=== PATIENT | male | born 1975 | race African-American/Black ===

== ENCOUNTER 2025-01-07 10:27 | Inpatient (IN) | payer OTHER, MEDICAID ==
[~2025-01-07] VITALS: Ht 190.5 cm; Wt 121.3 kg
--- NOTE | 2025-01-07 11:14 | ED.PDOC ---
GI ASSESSMENT HPI Comments This is a 49 year old male presenting to the ED with chief complaint of abdominal pain. Patient reports that he has been experiencing intermittent epigastric/LLQ abdominal cramping with associated nausea, vomiting, chills, and constipation for the past 3 weeks. Patient notes his pain is currently a 6/10. Patient denies any diarrhea, fever, chest pain, SOB, hematemesis, or melena. Chief Complaint: Abdominal Pain Time Seen by MD: 11:13 Primary Care Provider: NONE Reviewed Notes: Nurses Notes, Medications, Allergies Allergies: Coded Allergies: NO KNOWN ALLERGIES (Unverified , 01/29/11) Information Source: Patient Mode of Arrival: Ambulatory Timing: Weeks Duration: Intermittent Prehospital treatment: None Quality: Cramping Vomitus: Watery Stool: Impaction Severity: Moderate Recent: None Recent Hx of: None Pain Location: Epigastric, LLQ Modifying Factors: Nothing Associated sign and symptoms: Nausea, Vomiting, Constipation, Abdominal Pain Past Medical History PAST MEDICAL HISTORY: Denies Surgical History: Denies all surgeries Family History Family History: Reviewed,noncontributory to illness Social History Smoker: Non-Smoker Alcohol: Occasionally Drugs: Marijuana Lives In: Home Constitutional: reports: chills; denies: diaphoresis, fatigue, fever, malaise, sweats, weakness, others EENTM: denies: blurred vision, double vision, ear bleeding, ear discharge, ear drainage, ear pain, ear ringing, eye pain, eye redness, hearing loss, mouth dorothy n, mouth swelling, nasal discharge, nose bleeding, nose congestion, nose pain, photophobia, tearing, throat pain, throat swelling, voice changes, others Respiratory: denies: cough, hemoptysis, orthopnea, SOB at rest, shortness of breath, SOB with excertion, stridor, wheezing, others Cardiovascular: denies: chest pain, dizzy spells, diaphoresis, Dyspnea on exertion, edema, irregular heart beat, left arm pain, lightheadedness, palpitations, PND, syncope, others Gastrointestinal: reports: abdominal pain, constipated, nausea, vomiting; denies: abdomen distended, blood streaked bowels, diarrhea, dysphagia, difficult y swallowing, hematemesis, melena, poor appetite, poor fluid intake, rectal bleeding, rectal pain, others Genitourinary: denies: burning, dysuria, flank pain, frequency, hematuria, incontinence, penile discharge, penile sore, pain, testicle pain, testicle swelling, urgency, others Neurological: denies: dizziness, fainting, headache, left sided numbness, left sided weakness, numbness, paresthesia, pre-existing deficit, right sided numbness, right sided weakness, seizure, speech problems, tingling, tremors, weakness, others Musculoskeletal: denies: back pain, gout, joint pain, joint swelling, muscle pain, muscle stiffness, neck pain, others Integumetry: denies: bruises, change in color, change in hair/nails, dryness, laceration, lesions, lumps, rash, wounds, others Allergic/Immunocompromised: denies: Difficulty Healing, Frequent Infections, Hives, Itching, others Hematologic/Lymphatic: denies: anemia, blood clots, easy bleeding, easy bruising, swollen glands, others Endocrine: denies: excessive hunger, excessive sweating, excessive thirst, excessive urination, flushing, intolerance to cold, intolerance to heat, unexplained weight gain, unexplained weight loss, others Psychiatric: denies: anxiety, bipolar disorder, depression, hopeless, panic disorder, schizophrenia, sleepless, suicidal, others All Other Systems: Reviewed and Negative Physical Exam General Appearance: Moderate Distress HEENT: Normal ENT Inspection, Pharynx Normal, TMs Normal Neck: Full Range of Motion, Non-Tender, Normal, Normal Inspection Respiratory: Chest Non-Tender, Lungs Clear, No Accessory Muscle Use, No Respiratory Distress, Normal Breath Sounds Cardiovascular: No Edema, No JVD, No Murmur, No Gallop, Normal Peripheral Pulses, Regular Rate/Rhythm Breast Exam: Deferred Gastrointestinal: Diffuse, No Organomegaly, No Pulsatile Mass, Normal Bowel Sounds, Soft, Tenderness Genitalia: Deferred Pelvic: Deferred Rectal: Deferred Extremities: No calf tenderness, Normal capillary refill, Normal inspection, Normal range of motion, Non-tender, No pedal edema Musculoskeletal : Apperance: Normal Neurologic: Alert, account management assistant II-XII nml as Tested, Motor Weakness, Normal Affect, Normal Mood, No Sensory Deficits Cerebellar Function: Normal Reflexes: Normal Skin: Dry, Normal Color, Warm Lymphatic: No Adenopathy EKG EKG : Pulse Rate (adult): 66 [place]: Normal Cardiac Rhythm: NSR Block: None Hypertrophy: None ST: Normal Was a procedure done? Was a procedure done?: No GI differential Dx Differential Diagnosis: Appendicitis, Inflammatory BD, Ischemic Bowel, Pancreatitis, UTI, Urolithiasis, Electrolyte Imbalance, Food Poisoning X-Ray, Labs, Meds, VS Vital Signs Date Time Temp Pulse Resp B/P (MAP) Pulse Ox O2 Delivery O2 Flow Rate FiO2 01/07/25 12:58 98.3 95 19 124/80 (95) 98 98.3 01/07/25 11:29 66 01/07/25 10:37 66 01/07/25 10:30 98.1 76 18 134/89 97 98.1 Lab Test 01/07/25 11:55 Range/Units White Blood Count 9.3 4.4-10.8 10^3/uL Red Blood Count 4.78 4.5-5.90 10^6/uL Hemoglobin 15.1 13.5-17.5 g/dL Hematocrit 43.8 41.0-53.0 % Mean Corpuscular Volume 91.6 80.0-100.0 fL Mean Corpuscular Hemoglobin 31.5 28.0-32.0 pg Mean Corpuscular Hemoglobin Concent 34.4 32.0-36.0 g/dL Red Cell Distribution Width 13.1 11.8-14.3 % Platelet Count 288 140-450 10^3/uL Mean Platelet Volume 7.3 6.9-10.8 fL Neutrophils (%) (Auto) 63.1 37.0-80.0 % Lymphocytes (%) (Auto) 27.8 10.0-50.0 % Monocytes (%) (Auto) 8.0 0.0-12.0 % Eosinophils (%) (Auto) 0.4 0.0-7.0 % Basophils (%) (Auto) 0.7 0.0-2.0 % Neutrophils # (Auto) 5.8 1.6-8.6 10 ^3/uL Lymphocytes # (Auto) 2.6 0.4-5.4 10 ^3/uL Monocytes # (Auto) 0.7 0-1.3 10 ^3/uL Eosinophils # (Auto) 0 0-0.8 10 ^3/uL Basophils # (Auto) 0.1 0-0.2 10 ^3/uL Nucleated Red Blood Cells 0.1 % Sodium Level 140 136-145 mmol/L Potassium Level 4.4 3.5-5.1 mmol/L Chloride Level 108 H 98-107 mmol/L Carbon Dioxide Level 30 20-31 mmol/L Anion Gap 2 L 5-15 Blood Urea Nitrogen 11 9-23 mg/dL Creatinine 1.18 0.700-1.30 mg/dL Glomerular Filtration Rate Calc 75 >90 mL/min BUN/Creatinine Ratio 9.3 L 10.0-20.0 Serum Glucose 88 74-106 mg/dL Calcium Level 9.0 8.7-10.4 mg/dL Total Bilirubin 0.9 0.2-1.0 mg/dL Aspartate Amino Transferase (AST) 18 13-40 U/L Alanine Aminotransferase (ALT) 27 7-40 U/L Alkaline Phosphatase 76 46-116 U/L Total Protein 7.5 5.7-8.2 g/dL Albumin 4.2 3.2-4.8 g/dL Lipase 72 H 12-53 U/L CT Abd/Pel indicates: No acute intraabdominal abnormality. The patient's CBC is within normal limits The chemistry panel is within normal limits The patient's lipase is elevated at 72 indicating acute pancreatitis IV Hep-Lock was established The patient is being morphine 4 mg for the pain The patient was given Protonix 40 mg IV push The patient will be admitted at this time Images Reviewed?: Images reviewed and evaluated by me Time of 1ST Reevaluation: 16:04 Reevaluation 1ST: Unchanged Patient Education/Counseling: Diagnosis, Treatment, Prognosis Family Education/Counseling: No Family Present SEPSIS Sepsis Screen Date sepsis recognized/suspect: Jan 07, 2025 Time Sepsis recognized/suspect: 1032 Recent Procedure: No On Antibiotic Therapy: No Respiratory Rate >20: No Heart Rate >90: No Temp<36 C (96.8 F) or >38.3 C: No SBP <90 or MAP <65 mmHG: No New Acute Mental Status Change: No Is the patient on CPAP, BIPAP,: No Physician Orders Urinalysis (01/07/25 11:00) Ct Ab Pel Wo Con-No Oral Or Iv (01/07/25 11:00) Vital Signs Date Time Temp Pulse Resp B/P (MAP) Pulse Ox O2 Delivery O2 Flow Rate FiO2 01/07/25 12:58 98.3 95 19 124/80 (95) 98 98.3 01/07/25 11:29 66 01/07/25 10:37 66 01/07/25 10:30 98.1 76 18 134/89 97 98.1 Laboratory Tests Test 01/07/25 11:55 White Blood Count 9.3 10^3/uL (4.4-10.8) Departure 1 Departure Time of Disposition: 16:05 Impression: Primary Impression: Intractable abdominal pain Additional Impression: Acute pancreatitis Qualified Codes: K85.90 - Acute pancreatitis without necrosis or infection, unspecified Disposition: ADMITTED INPATIENT Admit to: Med Surg Condition: Fair Critical Care Note Critical Care Time?: No Stability Stability form required: Yes Unstable for transfer: ED Physician Assesment (Clinical assesment) Heart Score Heart Score: Heart Score Response (Comments) Value History N/A 0 EKG N/A 0 Age N/A 0 Risk Factors N/A 0 Troponin N/A 0 Total 0 I personally scribed for SALLIE YOUSIF MD ([email or web address]) on 01/07/25 at 11:14. Electronically submitted by Lino Amaya ([email or web address]). I personally scribed for SALLIE YOUSIF MD ([email or web address]) on 01/07/25 at 11:29. Electronically submitted by Lino Amaya ([email or web address]). I personally scribed for SALLIE YOUSIF MD ([email or web address]) on 01/07/25 at 11:44. Electronically submitted by Lino Amaya ([email or web address]). SALLIE YOUSIF MD Jan 07, 2025 11:14
--- NOTE | 2025-01-07 11:41 | DVH ---
CT CT AB PEL WO CON-NO ORAL OR IV INDICATION: pain EXAM DATE: 01/07/2025 10:59 AM COMPARISON: None RADIATION DOSE: CTDIvol: 23.2 mGy, DLP: 1428.03 mGy*cm PROCEDURE: Helical CT images were obtained of the abdomen and pelvis without IV contrast Sagittal and coronal reconstructions are provided. ORAL CONTRAST: None. ADDITIONAL IMAGES / REFORMATS: None All C T scans at this medical facility are performed using dose modulation techniques as appropriate to a p erformed exam including the following: Automated exposure control was utilized; adjustment of the MA and/or KV according to patient size; and use of iterative reconstruction technique. FINDINGS: LUNG BASE: Normal. LIVER: Normal. GALLBLADDER AND BILIARY TREE: No calcified gallstones. Normal caliber wall. No intra- or extrahepatic biliary ductal dilation. PANCREAS: Normal. SPLEEN: Normal. BOWEL: Mild colonic diverticulosis. Normal appendix. ADRENALS: Bilateral adrenal gland thickening, nonspecific. KIDNEYS AND URETER: Normal. BLADDER: Normal. REPRODUCTIVE ORGANS: Normal. LYMPH NODES:No lymphadenopathy. PERITONEUM: No ascites or free air. No other fluid collection. VESSELS: Scattered atherosclerotic calcifications are noted. RETROPERITONEUM: Normal. ABDOMINAL WALL: Normal. BONES: Scattered osseous degenerative changes are noted. IMPRESSION: No acute intraabdominal abnormality.
[2025-01-07 12:20] LABS: Hematocrit 43.8 % (41.0-53.0); Hemoglobin 15.1 g/dL (13.5-17.5); Mean Corpuscular Hemoglobin 31.5 pg (28.0-32.0); Mean Corpuscular Volume 91.6 fL (80.0-100.0); Nucleated Red Blood Cells % 0.1 %
[2025-01-07 12:39] LABS: Alanine Aminotransferase 27 U/L (7-40); Albumin 4.2 g/dL (3.2-4.8); Alkaline Phosphatase 76 U/L (46-116); Anion Gap 2 (5-15); BUN/Creatinine Ratio 9.3 (10.0-20.0); Bilirubin, Total 0.9 mg/dL (0.2-1.0); Blood Urea Nitrogen 11 mg/dL (9-23); Calcium 9.0 mg/dL (8.7-10.4); Carbon Dioxide 30 mmol/L (20-31); Chloride 108 mmol/L (98-107); Glucose 88 mg/dL (74-106); Potassium 4.4 mmol/L (3.5-5.1); Sodium 140 mmol/L (136-145); Total Protein 7.5 g/dL (5.7-8.2)
[2025-01-07 12:51] LABS: Lipase 72 U/L (12-53)
--- NOTE | 2025-01-07 13:32 | ECG ---
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
[2025-01-07] MEDS ORDERED: DOCUSATE SOD 100 MG CAP PO PRN (15:45)
[2025-01-07] MEDS ORDERED: MORPHINE SULFATE INJ 2 MG/ml SYRG IV PRN (15:45)
[2025-01-07] MEDS ORDERED: NITROGLYCERIN 0.4 MG SL TAB SL PRN (15:45)
[2025-01-07] MEDS ORDERED: ONDANSETRON HCL 4 MG/2 ML VIAL IV PRN (15:45)
--- NOTE | 2025-01-07 15:53 | DVHHP2 ---
History of Present Illness Reason for Visit: Abdominal pain History of Present Illness 49-year-old male past medical history denies denies any surgical history chief complaint patient has been dealing with epigastric pain for the last three weeks he states that it is like a stabbing pain/cramping pain he has been off and on is worse with eating and when he is having a bowel movement he does state he has a history of constipation he denies any recent colonoscopy or or EGD in the past he denies any tearing sensation in the abdomen no chest pain no shortness with the breath he does smoke weed by history with the drinks occasionally he states when evaluating patient's labs and imaging from ED CBC was unremarkable CMP unremarkable CT scan of the abdomen pelvis unremarkable lipase was found to be seven eighth two. With these findings we will admit for IV hydration and pain management Past Medical History See HPI above Past Surgical History See HPI above Family History Reviewed, non-contributory to the management of this case. Past Social History Does smoke weed drinks occasionally denies drug use Review of Systems Constitutional: No: Fever, Chills, Sweats, Weakness, Malaise, Other Eyes: No: Pain, Vision change, Conjunctivae inflammation, Eyelid inflammation, Other, Redness ENT: No: Ear pain, Ear discharge, Nose pain, Nose discharge, Nose congestion, Mouth pain, Mouth swelling, Throat pain, Throat swelling, Other Respiratory: No: Cough, Dry, Shortness of breath, SOB with excertion, Wheezing, Hemoptysis, Pleuritic Pain, Sputum, Wheezing, Other Cardiovascular: No: Chest Pain, Palpitations, Orthopnea, Paroxysmal Noc. Dyspnea, Edema, Lt Headedness, Other Gastrointestinal: Abdominal Pain; No: Nausea, Vomiting, Diarrhea, Constipation, Melena, Hematochezia, Other Genitourinary: No Dysuria, No Frequency, No Incontinence, No Hematuria, No Re tention, No Other Musculoskeletal: No: other, neck pain, shoulder pain, arm pain, back pain, hand pain, leg pain, foot pain Skin: No: Rash, Lesions, Jaundice, Bruising, Other Neurological: No: Weakness, Numbness, Incoordination, Change in speech, Confusion, Seizures, Other Allergies: Coded Allergies: NO KNOWN ALLERGIES (Unverified , 01/29/11) Exam Vital Signs Vital Signs Date Time Temp Pulse Resp B/P (MAP) Pulse Ox O2 Delivery O2 Flow Rate FiO2 01/07/25 12:58 98.3 95 19 124/80 (95) 98 98.3 General Appearance: Alert, Oriented X3, Cooperative, No acute distress HEENT: Atraumatic, PERRLA, EOMI, Mucous membr. moist/pink Respiratory: Clear to auscultation, Normal air movement Cardiovascular: Regular rate, Normal S1, Normal S2, No murmurs Abdominal: Normal bowel sounds, Soft, No tenderness, No hepatospenomegaly, No masses Extremities: No clubbing, No cyanosis, No edema, Normal pulses, No tenderness/swelling Skin: No rashes, No breakdown, No significant lesion Neuro: Normal gait, Normal speech, Strength at 5/5 X4 ext, Normal tone, Sensation intact Psych/Mental Status: Mental status NL, Mood NL Labs/Xrays CT scan abdomen pelvis unremarkable I reviewed labs, imaging CT scan abdomen pelvis, EKG and all diagnostic studies on this patient from ED records and the medical chart Labs Test 01/07/25 11:55 Range/Units White Blood Count 9.3 4.4-10.8 10^3/uL Red Blood Count 4.78 4.5-5.90 10^6/uL Hemoglobin 15.1 13.5-17.5 g/dL Hematocrit 43.8 41.0-53.0 % Mean Corpuscular Volume 91.6 80.0-100.0 fL Mean Corpuscular Hemoglobin 31.5 28.0-32.0 pg Mean Corpuscular Hemoglobin Concent 34.4 32.0-36.0 g/dL Red Cell Distribution Width 13.1 11.8-14.3 % Platelet Count 288 140-450 10^3/uL Mean Platelet Volume 7.3 6.9-10.8 fL Neutrophils (%) (Auto) 63.1 37.0-80.0 % Lymphocytes (%) (Auto) 27.8 10.0-50.0 % Monocytes (%) (Auto) 8.0 0.0-12.0 % Eosinophils (%) (Auto) 0.4 0.0-7.0 % Basophils (%) (Auto) 0.7 0.0-2.0 % Neutrophils # (Auto) 5.8 1.6-8.6 10 ^3/uL Lymphocytes # (Auto) 2.6 0.4-5.4 10 ^3/uL Monocytes # (Auto) 0.7 0-1.3 10 ^3/uL Eosinophils # (Auto) 0 0-0.8 10 ^3/uL Basophils # (Auto) 0.1 0-0.2 10 ^3/uL Nucleated Red Blood Cells 0.1 % Sodium Level 140 136-145 mmol/L Potassium Level 4.4 3.5-5.1 mmol/L Chloride Level 108 H 98-107 mmol/L Carbon Dioxide Level 30 20-31 mmol/L Anion Gap 2 L 5-15 Blood Urea Nitrogen 11 9-23 mg/dL Creatinine 1.18 0.700-1.30 mg/dL Glomerular Filtration Rate Calc 75 >90 mL/min BUN/Creatinine Ratio 9.3 L 10.0-20.0 Serum Glucose 88 74-106 mg/dL Calcium Level 9.0 8.7-10.4 mg/dL Total Bilirubin 0.9 0.2-1.0 mg/dL Aspartate Amino Transferase (AST) 18 13-40 U/L Alanine Aminotransferase (ALT) 27 7-40 U/L Alkaline Phosphatase 76 46-116 U/L Total Protein 7.5 5.7-8.2 g/dL Albumin 4.2 3.2-4.8 g/dL Lipase 72 H 12-53 U/L SEPSIS Sepsis Screen Date sepsis recognized/suspect: Jan 07, 2025 Time Sepsis recognized/suspect: 1032 Recent Procedure: No On Antibiotic Therapy: No Respiratory Rate >20: No Heart Rate >90: No Temp<36 C (96.8 F) or >38.3 C: No SBP <90 or MAP <65 mmHG: No New Acute Mental Status Change: No Is the patient on CPAP, BIPAP,: No Physician Orders Urinalysis (01/07/25 11:00) Ct Ab Pel Wo Con-No Oral Or Iv (01/07/25 11:00) Sucralfate Susp (Carafate Susp) (01/07/25 22:00) Pantoprazole (Protonix) (01/07/25 15:45) Pantoprazole (Protonix) (01/08/25 10:00) Admit (01/07/25 15:45) Allergies (01/07/25 15:45) Code Status (01/07/25 15:45) Full Liq Diet (01/07/25 Dinner) 0.9% Ns 1000 Ml (01/07/25 15:45) Temazepam (Restoril) (01/07/25 15:45) Ondansetron Hcl (Zofran) (01/07/25 15:45) Docusate Sodium Capsule (Colace Capsule) (01/07/25 15:45) Complete Blood Count (01/08/25 04:00) Comprehensive Metabolic Panel (01/08/25 04:00) Condition: Stable (01/07/25 15:45) BRP (01/07/25 15:45) Morphine Sulfate Injection (01/07/25 15:45) Sequential Compression Device (01/07/25 ) Nitroglycerin Sublingual (Ntrostat Subli (01/07/25 15:45) Stat Ekg For Chest Pain (01/07/25 15:45) Notify Md Of Changes From Base (01/07/25 15:45) Sheet Metal Supervisor For 24 Hours (01/07/25 15:45) Emergency Dysrhythmia Protocol (01/07/25 15:45) Rhythm Strips Once Every Shift (01/07/25 15:45) Oxygen By Nasal Cannula (01/07/25 15:45) Lipase (01/07/25 15:45) Vital Signs Date Time Temp Pulse Resp B/P (MAP) Pulse Ox O2 Delivery O2 Flow Rate FiO2 01/07/25 12:58 98.3 95 19 124/80 (95) 98 98.3 01/07/25 11:29 66 01/07/25 10:37 66 01/07/25 10:30 98.1 76 18 134/89 97 98.1 Laboratory Tests Test 01/07/25 11:55 White Blood Count 9.3 10^3/uL (4.4-10.8) Assessment/Plan Assessment/Plan Acute intractable abdominal pain CT scan unremarkable Full liquid diet for now Order Carafate and Protonix Order IV fluids Order morphine as needed for pain Follow up lipase in the a.m. Acute pancreatitis Elevated lipase Full liquid diet for now Order morphine as needed for pain fen/PPX Full liquid diet IV fluids Protonix No DVT prophylaxis since patient is ambulatory Plan admit to medicine Plan discussed with: Patient My Orders Orders - BHARATHI PEREZ DNP Procedure Category Date Status Time Sucralfate Susp PHA 01/07/25 Verified (Carafate Susp) 22:00 Pantoprazole PHA 01/07/25 Verified (Protonix) 15:45 Pantoprazole [facility] 01/08/25 Verified (Protonix) 10:00 Admit ADMIT 01/07/25 Verified 15:45 Allergies [facility] 01/07/25 Verified 15:45 Code Status CODE 01/07/25 Verified 15:45 Full Liq Diet DIET 01/07/25 Verified Dinner 0.9% Ns 1000 Ml PHA 01/07/25 Verified 15:45 Temazepam (Restoril) [facility] 01/07/25 Verified 15:45 Ondansetron Hcl [facility] 01/07/25 Verified (Zofran) 15:45 Docusate Sodium [facility] 01/07/25 Verified Capsule (Colace 15:45 Complete Blood Count LAB 01/08/25 Verified 04:00 Comprehensive LAB 01/08/25 Verified Metabolic Panel 04:00 Condition: Stable [facility] 01/07/25 Verified 15:45 BRP [facility] 01/07/25 Verified 15:45 Morphine Sulfate [facility] 01/07/25 Verified Injection 15:45 Sequential [facility] 01/07/25 Verified Compression Device Nitroglycerin [facility] 01/07/25 Verified Sublingual (Ntrostat 15:45 Stat Ekg For Chest [facility] 01/07/25 Verified Pain 15:45 Notify Md Of Changes [facility] 01/07/25 Verified From Base 15:45 Sheet Metal Supervisor For [facility] 01/07/25 Verified 24 Hours 15:45 Emergency Dysrhythmia [facility] 01/07/25 Verified Protocol 15:45 Rhythm Strips Once [facility] 01/07/25 Verified Every Shift 15:45 Oxygen By Nasal RT 01/07/25 Verified Cannula 15:45 Lipase LAB 01/07/25 Verified 15:45 Date of Service: Jan 07, 2025 Billing Provider: BHARATHI PEREZ DNP Common Visit Codes: [id number] INP/OBS CARE (HIGH) BHARATHI PEREZ DNP Jan 07, 2025 15:53
[2025-01-07] MEDS: PANTOPRAZOLE 40 MG/10 ML VIAL INJ IV ONE (17:43)
[2025-01-07 17:53] VITALS: PULSE 50; RESP 18; O2SAT 95
[2025-01-07 18:12] LABS: Urine Protein, UAD Negative (Negative)
[2025-01-07] MEDS: DICYCLOMINE HCL 10 MG CAP PO SCH (18:20)
[2025-01-07] MEDS: SODIUM CHLORIDE 0.9% 1,000 ML IV SCH (18:30)
[2025-01-07] MEDS ORDERED: TEMAZEPAM 15 MG CAP PO PRN (22:00)
[2025-01-07] MEDS: SUCRALFATE 1 GM/10 ML ORAL SUSP PO SCH (22:56)
[2025-01-08] VITALS (9 sets, daily range): BP systolic 116–156; BP diastolic 81–101; PULSE 58–86; RESP 16–18; TEMP 97.1–98.5; O2SAT 96–99
[2025-01-08 06:19] LABS: Hematocrit 41.2 % (41.0-53.0); Hemoglobin 14.1 g/dL (13.5-17.5); Mean Corpuscular Hemoglobin 31.1 pg (28.0-32.0); Mean Corpuscular Volume 90.5 fL (80.0-100.0); Nucleated Red Blood Cells % 0.1 %
[2025-01-08 06:44] LABS: Alanine Aminotransferase 22 U/L (7-40); Albumin 3.6 g/dL (3.2-4.8); Alkaline Phosphatase 69 U/L (46-116); Anion Gap 6 (5-15); BUN/Creatinine Ratio 9.2 (10.0-20.0); Blood Urea Nitrogen 11 mg/dL (9-23); Carbon Dioxide 26 mmol/L (20-31); Glucose 82 mg/dL (74-106); Potassium 4.0 mmol/L (3.5-5.1); Sodium 141 mmol/L (136-145); Total Protein 6.7 g/dL (5.7-8.2)
[2025-01-08 06:45] LABS: Bilirubin, Total 1.0 mg/dL (0.2-1.0); Calcium 8.7 mg/dL (8.7-10.4); Chloride 109 mmol/L (98-107)
[2025-01-08] MEDS: PANTOPRAZOLE 40 MG/10 ML VIAL INJ IV SCH (09:23)
--- NOTE | 2025-01-08 11:37 | DVHPN2 ---
Reviewed: Care Plan, H&P, Labs, Medications, Previous Orders, Radiology Changes from previous H/P or p: No Changes Eyes: No Pain, No Vision change, No Conjunctivae inflammation, No Eyelid inflammation, No Other, No Redness ENT: No Ear pain, No Ear discharge, No Nose pain, No Nose discharge, No Nose congestion, No Mouth pain, No Mouth swelling, No Throat pain, No Throat swelling, No Other Cardiovascular: No Chest Pain, No Palpitations, No Orthopnea, No Paroxysmal Noc. Dyspnea, No Edema, No Lt Headedness, No Other Respiratory: No Cough, No Dry, No Shortness of breath, No SOB with excertion, No Wheezing, No Hemoptysis, No Pleuritic Pain, No Sputum, No Other Gastrointestinal: No Nausea, No Vomiting; Abdominal Pain; No Diarrhea, No Constipation, No Melena, No Hematochezia, No Other Genitourinary: No Dysuria, No Frequency, No Incontinence, No Hematuria, No Retention, No Other Musculoskeletal: No other, No neck pain, No shoulder pain, No arm pain, No back pain, No hand pain, No leg pain, No foot pain Skin: No Rash, No Lesions, No Jaundice, No Bruising, No Other Objective Vitals Vital Signs Date Time Temp Pulse Resp B/P (MAP) Pulse Ox O2 Delivery O2 Flow Rate FiO2 01/08/25 09:00 98.4 86 18 116/81 (93) 99 98.4 01/08/25 08:00 Room Air* 0 21 Intake/Output Intake and Output 01/08/25 07:00 Intake Total 420 ml Balance 420 ml Intake Oral 420 ml # Voids 3 Medications Current Medications Medications Dose Ordered Sig/Natalie Route Start Time Stop Time Status Last Admin Dose Admin Sucralfate 1 gm TID@0600,1130,2200 PO 01/07/25 22:00 01/08/25 05:15 1 GM Pantoprazole Sodium 40 mg DAILY IV 01/08/25 10:00 01/08/25 09:23 40 MG Sodium Chloride 1,000 ml @ 120 mls/hr Q8H20M IV 01/07/25 15:45 01/08/25 09:23 120 MLS/HR Temazepam 15 mg QHSP PRN PO 01/07/25 22:00 Ondansetron HCl 4 mg Q4HP PRN IV 01/07/25 15:45 Docusate Sodium 100 mg BIDPRN PRN PO 01/07/25 15:45 Morphine Sulfate 2 mg Q4HPRN PRN IV 01/07/25 15:45 Nitroglycerin 0.4 mg Q5MINP PRN SL 01/07/25 15:45 Dicyclomine HCl 20 mg QID PO 01/07/25 18:00 01/08/25 05:15 20 MG Laboratory Results Laboratory Tests 01/08/25 05:52 Chemistry Test 01/07/25 11:55 01/08/25 05:52 Albumin 4.2 g/dL (3.2-4.8) 3.6 g/dL (3.2-4.8) Calcium Level 9.0 mg/dL (8.7-10.4) 8.7 mg/dL (8.7-10.4) Total Protein 7.5 g/dL (5.7-8.2) 6.7 g/dL (5.7-8.2) Lipid panel Test 01/07/25 11:55 Lipase 72 U/L (12-53) H LFT Test 01/07/25 11:55 01/08/25 05:52 Alanine Aminotransferase (ALT) 27 U/L (7-40) 22 U/L (7-40) Alkaline Phosphatase 76 U/L (46-116) 69 U/L (46-116) Aspartate Amino Transferase (AST) 18 U/L (13-40) 16 U/L (13-40) Total Bilirubin 0.9 mg/dL (0.2-1.0) 1.0 mg/dL (0.2-1.0) Urinalysis Test 01/07/25 17:50 Urine Color Light-yellow (Yellow) Urine Clarity Clear (Clear) Urine pH 5.5 (5.0-9.0) Urine Specific [place] 1.021 (1.001-1.035) Urine Protein Negative (Negative) Urine Ketones Negative (Negative) Urine Blood Negative /uL (Negative) Urine Nitrite Negative (Negative) Urine Bilirubin Negative (Negative) Urine Urobilinogen Normal mg/dL (Negative) Urine Leukocyte Esterase Trace /uL (Negative) Urine RBC 1 /hpf (0 - 3) Urine Microscopic WBC 12 /HPF (0-3) H Urine Squamous Epithelial Cells None seen /hpf (<5) Urine Bacteria None seen /hpf (None Seen) Urine Glucose Normal mg/dL (Normal) Labs and/or images reviewed: Labs reviewed by me, Image(s) reviewed by me Assessment/Plan Assessment/Plan Acute pancreatitis: Pantoprazole Carafate morphine Acute epigastric abdominal pain Acute dehydration: IV fluids Chronic Current alcohol abuse: Counseled Plan discussed with: Patient Date of Service: Jan 08, 2025 Billing Provider: REJI PADRON MD Common Visit Codes: [id number] INP/OBS CARE(HIGH) REJI PADRON MD Jan 08, 2025 11:37
--- NOTE | 2025-01-08 14:29 | DVHCONRES ---
Date Seen: Jan 08, 2025 Resident Creating Document: [place] OLSEN RESIDENT Referring Physician Dr. Hood Reason for Consultation Abdominal pain History of Present Illness Patient is a 49-year-old male with no significant past medical history who comes to the hospital due to acute intractable abdominal pain. According to the patient, he has been having abdominal pain off and on for the past 2 months mult iple times a week, pain is worsened with eating and relieved with defecation also associated with nausea. According to the patient, current episode started on 01/07/2025 when he woke up with acute intractable abdominal pain which was cramping in nature, 7/10 in intensity, localized to the left lower quadrant with radiation to the midepigastrium which is what prompted this visit to the hospital, pain was associated with 3 episodes of vomiting. Vomitus containing food. Per patient, last bowel movement was this a.m., normal in color and consistency. Denies any further nausea or vomiting. Past Medical History Denies Past Surgical History Denies Family History: Cerebrovascular accident (CVA) G8 MOTHER Hypertension G8 FATHER Ischemic heart disease G8 MOTHER Prostate carcinoma G8 FATHER Social History Smoking: Denies Alcohol: Drinks 2 drinks per day, last drink was on Saturday01/06/2025 Drugs: Uses marijuana daily. Allergies: Coded Allergies: NO KNOWN ALLERGIES (Unverified , 01/29/11) Current Medications Current Medications Medications (Trade) Dose Ordered Sig/Natalie Route PRN Reason Start Time Stop Time Status Last Admin Sucralfate (Carafate Susp) 1 gm TID@0600,1130,2200 PO 01/07/25 22:00 01/08/25 11:52 Pantoprazole Sodium (Protonix) 40 mg DAILY IV 01/08/25 10:00 01/08/25 09:23 Sodium Chloride 1,000 ml @ 120 mls/hr Q8H20M IV 01/07/25 15:45 01/08/25 09:23 Temazepam (Restoril) 15 mg QHSP PRN PO FOR INSOMNIA 01/07/25 22:00 Ondansetron HCl (Zofran) 4 mg Q4HP PRN IV NAUSEA / VOMITING 01/07/25 15:45 Docusate Sodium (Colace Capsule) 100 mg BIDPRN PRN PO FOR CONSTIPATION 01/07/25 15:45 Morphine Sulfate 2 mg Q4HPRN PRN IV SEVERE PAIN (7-10 PAIN SCALE) 01/07/25 15:45 Nitroglycerin (Ntrostat Sublingual) 0.4 mg Q5MINP PRN SL FOR CHEST PAIN 01/07/25 15:45 Dicyclomine HCl (Bentyl Capsule) 20 mg QID PO 01/07/25 18:00 01/08/25 11:52 Review of Systems Eyes: No Pain, No Vision change, No Conjunctivae inflammation, No Eyelid inflammation, No Other, No Redness ENT: No Ear pain, No Ear discharge, No Nose pain, No Nose discharge, No Nose congestion, No Mouth pain, No Mouth swelling, No Throat pain, No Throat swelling, No Other Cardiovascular: No Chest Pain, No Palpitations, No Orthopnea, No Paroxysmal No Dyspnea, No Edema, No Lt Headedness, No Other Respiratory: No Cough, No Dry, No Shortness of breath, No SOB with exertion, No Wheezing, No Hemoptysis, No Pleuritic Pain, No Sputum, No Other Gastrointestinal: No Nausea, No Vomiting, Abdominal Pain, No Diarrhea, No Constipation, No Melena, No Hematochezia, No Other Genitourinary: No Dysuria, No Frequency, No Incontinence, No Hematuria, No Retention, No Other Musculoskeletal: No other, No neck pain, No shoulder pain, No arm pain, No back pain, No hand pain, No leg pain, No foot pain Skin: No Rash, No Lesions, No Jaundice, No Bruising, No Other Vital Signs Vital Signs Date Time Temp Pulse Resp B/P (MAP) Pulse Ox O2 Delivery O2 Flow Rate FiO2 01/08/25 13:07 97.1 58 18 133/91 (105) 99 97.1 01/08/25 08:00 Room Air* 0 21 Physical Exam General Appearance: Cooperative. Well developed. Well nourished. NAD Pulmonary/Respiratory: Equal bilateral air entry Cardiovascular/Chest: Regular rate and rhythm. No murmurs. No JVD. Abdominal Exam: Normal bowel sounds. Soft. normal abdomen, no visible veins, left lower quadrant tenderness to deep palpation, generalized lower abdominal tenderness to palpation. No hepatospenomegaly. No masses Neuro/Mental Status: A&O x4. Coherent. Thoughts/Psych: Normal thought pattern. Appropriate mood and affect. Good judgement and insight Skin Exam: Normal inspection. Normal color. Warm. Dry Labs/Diagnostic Data Labs Test 01/08/25 05:52 01/07/25 17:50 01/07/25 11:55 Range/Units White Blood Count 9.5 4.4-10.8 10^3/uL Red Blood Count 4.55 4.5-5.90 10^6/uL Hemoglobin 14.1 13.5-17.5 g/dL Hematocrit 41.2 41.0-53.0 % Mean Corpuscular Volume 90.5 80.0-100.0 fL Mean Corpuscular Hemoglobin 31.1 28.0-32.0 pg Mean Corpuscular Hemoglobin Concent 34.3 32.0-36.0 g/dL Red Cell Distribution Width 13.0 11.8-14.3 % Platelet Count 269 140-450 10^3/uL Mean Platelet Volume 7.3 6.9-10.8 fL Neutrophils (%) (Auto) 62.4 37.0-80.0 % Lymphocytes (%) (Auto) 28.1 10.0-50.0 % Monocytes (%) (Auto) 8.4 0.0-12.0 % Eosinophils (%) (Auto) 0.6 0.0-7.0 % Basophils (%) (Auto) 0.5 0.0-2.0 % Neutrophils # (Auto) 5.9 1.6-8.6 10 ^3/uL Lymphocytes # (Auto) 2.7 0.4-5.4 10 ^3/uL Monocytes # (Auto) 0.8 0-1.3 10 ^3/uL Eosinophils # (Auto) 0.1 0-0.8 10 ^3/uL Basophils # (Auto) 0 0-0.2 10 ^3/uL Nucleated Red Blood Cells 0.1 % Sodium Level 141 136-145 mmol/L Potassium Level 4.0 3.5-5.1 mmol/L Chloride Level 109 H 98-107 mmol/L Carbon Dioxide Level 26 20-31 mmol/L Anion Gap 6 5-15 Blood Urea Nitrogen 11 9-23 mg/dL Creatinine 1.20 0.700-1.30 mg/dL Glomerular Filtration Rate Calc 74 >90 mL/min BUN/Creatinine Ratio 9.2 L 10.0-20.0 Serum Glucose 82 74-106 mg/dL Calcium Level 8.7 8.7-10.4 mg/dL Total Bilirubin 1.0 0.2-1.0 mg/dL Aspartate Amino Transferase (AST) 16 13-40 U/L Alanine Aminotransferase (ALT) 22 7-40 U/L Alkaline Phosphatase 69 46-116 U/L Total Protein 6.7 5.7-8.2 g/dL Albumin 3.6 3.2-4.8 g/dL Urine Color Light-yellow Yellow Urine Clarity Clear Clear Urine pH 5.5 5.0-9.0 Urine Specific [place] 1.021 1.001-1.035 Urine Protein Negative Negative Urine Ketones Negative Negative Urine Blood Negative Negative /uL Urine Nitrite Negative Negative Urine Bilirubin Negative Negative Urine Urobilinogen Normal Negative mg/dL Urine Leukocyte Esterase Trace Negative /uL Urine RBC 1 0 - 3 /hpf Urine Microscopic WBC 12 H 0-3 /HPF Urine Squamous Epithelial Cells None seen <5 /hpf Urine Bacteria None seen None Seen /hpf Urine Glucose Normal Normal mg/dL Lipase 72 H 12-53 U/L Assessment Acute intractable abdominal pain Acute pancreatitis Alcohol use disorder Plan: CT abdomen pelvis shows no acute intracranial abnormality. Lipid panel Abdominal ultrasound Serum lipase 72 Repeat serum lipase in the a.m. Continue current supportive care IV hydration Clear liquid diet IV Protonix Follow up with GI in the outpatient for colonoscopy and/or endoscopy Consider advancing diet tomorrow Thank you so much for the opportunity to consult on your patient. GI team will follow the patient. In case of any questions or concerns please feel free to reach out. Plan discussed with Dr. Navarro Plan discussed with: Patient, Other (RN) [place] OLSEN RESIDENT Jan 08, 2025 14:29
[2025-01-08 15:13] LABS: HDL Cholesterol 40 mg/dL (40-59)
[2025-01-08 15:14] LABS: Cholesterol 198 mg/dL (< 200)
[2025-01-08 15:28] LABS: Triglycerides 163 mg/dL (< 150)
--- NOTE | 2025-01-08 15:41 | DVH ---
CLINICAL HISTORY: Pancreatitis plus evaluate right upper quadrant TECHNIQUE: Complete ultrasound exam of the abdomen was performed. COMPARISON: None FINDINGS: The liver is heterogeneous in echogenicity with no focal parenchymal abnormality. The liver measures 17.5 cm in length. The common duct is 5 mm. Gallbladder is normal without shadowing stone or tenderness. The pancreas is within normal limits. No ascites or fluid collection. The right kidney is 10 cm and the left kidney is 11 cm. No hydronephrosis, increased echogenicity, o r shadowing stone. There is a 1.9 cm left renal cyst. Spleen is within normal limits. The aorta and IVC are normal caliber and patent. IMPRESSION: NO SIGNIFICANT SONOGRAPHIC ABNORMALITY OF THE ABDOMEN.
[2025-01-09 01:00] VITALS: BP 138/89; PULSE 67; RESP 18; TEMP 98.3; O2SAT 97
[2025-01-09 05:00] VITALS: BP 116/83; PULSE 57; RESP 20; TEMP 98.3; O2SAT 96
[2025-01-09 08:00] VITALS: O2SAT 99
[2025-01-09 09:00] VITALS: BP 117/71; PULSE 60; RESP 20; TEMP 97.5; O2SAT 98
[2025-01-09] MEDS ORDERED: PANT40T PO (10:41)
[2025-01-09] MEDS ORDERED: THIA100T13 PO (10:41)
[2025-01-09] MEDS ORDERED: FOLI-119 PO (10:41)
--- NOTE | 2025-01-09 10:42 | DVHPN2 ---
Reviewed: Care Plan, H&P, Labs, Medications, Previous Orders, Radiology Changes from previous H/P or p: No Changes Eyes: No Pain, No Vision change, No Conjunctivae inflammation, No Eyelid inflammation, No Other, No Redness ENT: No Ear pain, No Ear discharge, No Nose pain, No Nose discharge, No Nose congestion, No Mouth pain, No Mouth swelling, No Throat pain, No Throat swelling, No Other Cardiovascular: No Chest Pain, No Palpitations, No Orthopnea, No Paroxysmal Noc. Dyspnea, No Edema, No Lt Headedness, No Other Respiratory: No Cough, No Dry, No Shortness of breath, No SOB with excertion, No Wheezing, No Hemoptysis, No Pleuritic Pain, No Sputum, No Other Gastrointestinal: No Nausea, No Vomiting; Abdominal Pain; No Diarrhea, No Constipation, No Melena, No Hematochezia, No Other Genitourinary: No Dysuria, No Frequency, No Incontinence, No Hematuria, No Retention, No Other Musculoskeletal: No other, No neck pain, No shoulder pain, No arm pain, No back pain, No hand pain, No leg pain, No foot pain Skin: No Rash, No Lesions, No Jaundice, No Bruising, No Other Objective Vitals Vital Signs Date Time Temp Pulse Resp B/P (MAP) Pulse Ox O2 Delivery O2 Flow Rate FiO2 01/09/25 05:00 98.3 57 20 116/83 (94) 96 98.3 01/08/25 20:00 Room Air* 0 21 Intake/Output Intake and Output 01/09/25 07:00 Intake Total 640 ml Balance 640 ml Intake Oral 640 ml # Voids 17 # Bowel Movements 2 Medications Current Medications Medications Dose Ordered Sig/Natalie Route Start Time Stop Time Status Last Admin Dose Admin Sucralfate 1 gm TID@0600,1130,2200 PO 01/07/25 22:00 01/09/25 05:47 1 GM Pantoprazole Sodium 40 mg DAILY IV 01/08/25 10:00 01/08/25 09:23 40 MG Sodium Chloride 1,000 ml @ 120 mls/hr Q8H20M IV 01/07/25 15:45 01/09/25 05:48 120 MLS/HR Temazepam 15 mg QHSP PRN PO 01/07/25 22:00 Ondansetron HCl 4 mg Q4HP PRN IV 01/07/25 15:45 Docusate Sodium 100 mg BIDPRN PRN PO 01/07/25 15:45 Morphine Sulfate 2 mg Q4HPRN PRN IV 01/07/25 15:45 Nitroglycerin 0.4 mg Q5MINP PRN SL 01/07/25 15:45 Dicyclomine HCl 20 mg QID PO 01/07/25 18:00 01/09/25 05:47 20 MG Laboratory Results Laboratory Tests 01/08/25 05:52 Lipid panel Test 01/09/25 06:15 Lipase 38 U/L (12-53) Urinalysis Test 01/07/25 17:50 Urine Color Light-yellow (Yellow) Urine Clarity Clear (Clear) Urine pH 5.5 (5.0-9.0) Urine Specific [place] 1.021 (1.001-1.035) Urine Protein Negative (Negative) Urine Ketones Negative (Negative) Urine Blood Negative /uL (Negative) Urine Nitrite Negative (Negative) Urine Bilirubin Negative (Negative) Urine Urobilinogen Normal mg/dL (Negative) Urine Leukocyte Esterase Trace /uL (Negative) Urine RBC 1 /hpf (0 - 3) Urine Microscopic WBC 12 /HPF (0-3) H Urine Squamous Epithelial Cells None seen /hpf (<5) Urine Bacteria None seen /hpf (None Seen) Urine Glucose Normal mg/dL (Normal) Labs and/or images reviewed: Labs reviewed by me, Image(s) reviewed by me Assessment/Plan Assessment/Plan Acute pancreatitis: Pantoprazole Carafate morphine GI consult by Dr. Arvin Navarro appreciated Acute epigastric abdominal pain Acute dehydration: IV fluids Chronic Current alcohol abuse: Counseled Cleared for discharge by GI Plan discussed with: Patient My Orders Orders - REJI PADRON MD Procedure Category Date Status Time * Gi Dvh Accessioner CONS 01/08/25 Transmitted 13:41 Date of Service: Jan 09, 2025 Billing Provider: REJI PADRON MD Common Visit Codes: [id number] INP/OBS CARE(HIGH) REJI PADRON MD Jan 09, 2025 10:42
--- NOTE | 2025-01-09 10:47 | DVHDS2 ---
Discharge Summary Date of Admission Jan 07, 2025 at 15:45 Date of Discharge: Jan 09, 2025 Admitting Diagnosis Epigastric abdominal pain Wounds: None Labs/Diagnostic Data: Laboratory Results Test 01/09/25 06:15 01/08/25 05:52 01/07/25 17:50 Lipase 38 U/L (12-53) White Blood Count 9.5 10^3/uL (4.4-10.8) Red Blood Count 4.55 10^6/uL (4.5-5.90) Hemoglobin 14.1 g/dL (13.5-17.5) Hematocrit 41.2 % (41.0-53.0) Mean Corpuscular Volume 90.5 fL (80.0-100.0) Mean Corpuscular Hemoglobin 31.1 pg (28.0-32.0) Mean Corpuscular Hemoglobin Concent 34.3 g/dL (32.0-36.0) Red Cell Distribution Width 13.0 % (11.8-14.3) Platelet Count 269 10^3/uL (140-450) Mean Platelet Volume 7.3 fL (6.9-10.8) Neutrophils (%) (Auto) 62.4 % (37.0-80.0) Lymphocytes (%) (Auto) 28.1 % (10.0-50.0) Monocytes (%) (Auto) 8.4 % (0.0-12.0) Eosinophils (%) (Auto) 0.6 % (0.0-7.0) Basophils (%) (Auto) 0.5 % (0.0-2.0) Neutrophils # (Auto) 5.9 10 ^3/uL (1.6-8.6) Lymphocytes # (Auto) 2.7 10 ^3/uL (0.4-5.4) Monocytes # (Auto) 0.8 10 ^3/uL (0-1.3) Eosinophils # (Auto) 0.1 10 ^3/uL (0-0.8) Basophils # (Auto) 0 10 ^3/uL (0-0.2) Nucleated Red Blood Cells 0.1 % Sodium Level 141 mmol/L (136-145) Potassium Level 4.0 mmol/L (3.5-5.1) Chloride Level 109 mmol/L (98-107) Carbon Dioxide Level 26 mmol/L (20-31) Anion Gap 6 (5-15) Blood Urea Nitrogen 11 mg/dL (9-23) Creatinine 1.20 mg/dL (0.700-1.30) Glomerular Filtration Rate Calc 74 mL/min (>90) BUN/Creatinine Ratio 9.2 (10.0-20.0) Serum Glucose 82 mg/dL (74-106) Calcium Level 8.7 mg/dL (8.7-10.4) Total Bilirubin 1.0 mg/dL (0.2-1.0) Aspartate Amino Transferase (AST) 16 U/L (13-40) Alanine Aminotransferase (ALT) 22 U/L (7-40) Alkaline Phosphatase 69 U/L (46-116) Total Protein 6.7 g/dL (5.7-8.2) Albumin 3.6 g/dL (3.2-4.8) Triglycerides Level 163 mg/dL (< 150) Cholesterol Level 198 mg/dL (< 200) LDL Cholesterol 141 mg/dL (< 100) HDL Cholesterol 40 mg/dL (40-59) Urine Color Light-yellow (Yellow) Urine Clarity Clear (Clear) Urine pH 5.5 (5.0-9.0) Urine Specific [place] 1.021 (1.001-1.035) Urine Protein Negative (Negative) Urine Ketones Negative (Negative) Urine Blood Negative /uL (Negative) Urine Nitrite Negative (Negative) Urine Bilirubin Negative (Negative) Urine Urobilinogen Normal mg/dL (Negative) Urine Leukocyte Esterase Trace /uL (Negative) Urine RBC 1 /hpf (0 - 3) Urine Microscopic WBC 12 /HPF (0-3) Urine Squamous Epithelial Cells None seen /hpf (<5) Urine Bacteria None seen /hpf (None Seen) Urine Glucose Normal mg/dL (Normal) Other Laboratory Tests 01/08/25 05:52 Brief Hx & Hospital Course: 49-year-old male with a chronic alcohol abuse came in for epigastric abdominal pain found to have acute pancreatitis with a mild elevated lipase treated with the pantoprazole Carafate IV fluids and pain medications seen by GI Dr. Arvin Navarro at the time of discharge patient is tolerating regular diet afebrile stable vital signs cleared for discharge by GI. Prescription for pantoprazole thiamine folic acid sent to the pharmacy. He was advised to quit using alcohol Consults/Reason for consult GI Dr. Arvin Navarro Operations or Procedures CT abdomen pelvis without contrast Condition at Discharge: Fair Final Diagnosis/Problems List Acute pancreatitis: Pantoprazole Carafate morphine GI consult by Dr. Arvin Navarro appreciated Acute epigastric abdominal pain Acute dehydration: IV fluids Chronic Current alcohol abuse: Counseled Discharge Disposition: Home Discharge Instruct/Medications Diet: Regular Activity: Light activity Follow Up/Referral: Stop drinking alcohol Use medications as prescribed Follow up with the primary Dr Medications: Pantoprazole Thiamine Folic acid Transmitted to [facility] pharmacy Scheduled Folic Acid (Folic Acid), 1 MG PO DAILY Pantoprazole Sodium Sesquihydr (Pantoprazole Sodium), 40 MG PO BID Thiamine HCl (Thiamine Hydrochloride), 100 MG PO DAILY 35 (Time taken for discharge summary 35 minutes) Discharge Statement: "Patient was advised to return to the ER or call 911 if any headaches, dizziness, shortness of breath, chest pain, abdominal pain, bleeding, fevers, or worsening of medical condition. Patient was counseled about treatment plan, medications, possible side effects, patientverbalized understanding. All questions were answered to the best of my ability. This discharge took greater then 30 minutes in planning, reviewing documentation, counseling the patient, and discussing with other team members." ASSESSMENT ASSESSMENT Hospital Course Uneventful Assessment Acute pancreatitis: Pantoprazole Carafate morphine GI consult by Dr. Arvin Navarro appreciated Acute epigastric abdominal pain Acute dehydration: IV fluids Chronic Current alcohol abuse: Counseled Date of Service: Jan 09, 2025 Billing Provider: REJI PADRON MD Common Visit Codes: [id number] DISCH DAY >30min REJI PADRON MD Jan 09, 2025 10:47
[2025-01-09 12:46] VITALS: BP 146/88; PULSE 60; RESP 20; TEMP 98.6; O2SAT 98
[2025-01-09 13:00] VITALS: BP 148/94; PULSE 20; RESP 20; TEMP 98.6; O2SAT 98
--- NOTE | 2025-01-09 16:15 | DVHPN2 ---
Progress Note - Dictate Date Seen: Jan 09, 2025 (Late entryPatient seen at 10:00 a.m.) Medical Necessity Reason Pt with a Central, PICC or Fol: No Subjective Patient seen at bedside, resting comfortably No further nausea vomiting or abdominal pain Patient does admit to moderate alcohol intake Lipase level has normalized and liver enzymes are normal vital signs Vital Sign Date Time Temp Pulse Resp B/P (MAP) Pulse Ox O2 Delivery O2 Flow Rate FiO2 01/09/25 13:00 98.6 20 20 148/94 (112) 98 98.6 01/09/25 08:00 Room Air* 0 21 Total Intake and Output 01/08/25 01/08/25 01/09/25 15:00 23:00 07:00 Intake Total 200 ml 440 ml Balance 200 ml 440 ml objective General Appearance: Cooperative. Well developed. Well nourished. NAD Pulmonary/Respiratory: Equal bilateral air entry Cardiovascular/Chest: Regular rate and rhythm. No murmurs. No JVD. Abdominal Exam: Normal bowel sounds. Soft. normal abdomen, no visible veins, left lower quadrant tenderness to deep palpation, generalized lower abdominal tenderness to palpation. No hepatospenomegaly. No masses Neuro/Mental Status: A&O x4. Coherent. Thoughts/Psych: Normal thought pattern. Appropriate mood and affect. Good judgement and insight Skin Exam: Normal inspection. Normal color. Warm. Dry laboratory and microbiology Laboratory Tests 01/08/25 05:52 Test 01/08/25 05:52 Range/Units Serum Glucose 82 74-106 mg/dL Problems(with codes): (1) Alcoholic pancreatitis (2) Alcoholic gastritis (3) Intractable abdominal pain (4) Acute pancreatitis Prognosis Plan Advance diet as tolerated Patient has been counseled about discontinuing alcohol Patient is stable for discharge from GI point of view Patient will be put on Protonix 40 mg p.o. q.a.m. Patient was treated with Carafate 1 g 4 times a day Discharge planning is in progress Patient was advised to follow up in my office as an outpatient for elective EGD and colonoscopy Plan discussed with: Patient, Other (Dr Deepak Hood) WHIT FULTON MD Jan 09, 2025 16:15
== END 2025-01-09 14:15 | disposition home or self-care (01) | DRG 440 ==
LOC: ER 10:27 → OVERFLOW 15:45 → WEST WING 21:47
PROVIDERS: ADMIT Family Medicine; ATTEND Family Medicine
DX: K85.90 Acute pancreatitis without necrosis or infection, unspecified (principal); E86.0 Dehydration; R74.8 Abnormal levels of other serum enzymes; F10.10 Alcohol abuse, uncomplicated; Y90.9 Presence of alcohol in blood, level not specified
CPT/HCPCS: 36415; 74176; 76700; 80053; 80061; 81001; 83690; 85025; 93005; 96374; G0378; J2470